=== PATIENT | male | born 1990 | race Caucasian/White ===

== ENCOUNTER 2019-01-20 03:11 | Emergency (ER) | payer OTHER, BC ==
[~2019-01-20] VITALS: Ht 188 cm; Wt 72.6 kg
[2019-01-20 03:15] VITALS: BP_SYST 158
[2019-01-20 03:48] VITALS: BP_SYST 158
== END 2019-01-20 03:48 | disposition home or self-care (01) ==
LOC: SED 03:11
DX: F10.129 Alcohol abuse with intoxication, unspecified (principal); R11.10 Vomiting, unspecified
CPT/HCPCS: 99283